=== PATIENT | female | born 1945 | race Two or more races ===

== ENCOUNTER → 2017-08-30 | Emergency (ER) | payer OTHER ==
[~2017-08-30] VITALS: Ht 149.9 cm; Wt 59.0 kg
[~2017-08-30] MED LIST: ANTIVERT12.5 MG; CALCIUM1 TAB; DICLOFENAC SODI50 MG; GLIMEPIRIDE2 MG; LIPITOR20 MG; METFORMIN HCL500 M1; METOPROLOL SUC200 MG; MICARDIS80 MG; NORVASC2.5 MG; SYNTHROID150 MCG
== END | disposition home or self-care (01) ==
LOC: ER 18:12
DX: J11.1 Influenza due to unidentified influenza virus with other respiratory manifestations (principal)

== ENCOUNTER 2017-09-10 09:14 | Outpatient (CLI) | payer OTHER | END 2017-09-10 09:27 | disposition home or self-care (01) | LOC: LAB 09:14 | DX: D64.89 Other specified anemias (principal); N39.0 Urinary tract infection, site not specified; E11.9 Type 2 diabetes mellitus without complications; E78.2 Mixed hyperlipidemia; E03.0 Congenital hypothyroidism with diffuse goiter; E55.0 Rickets, active; N28.9 Disorder of kidney and ureter, unspecified; Z12.12 Encounter for screening for malignant neoplasm of rectum ==

== ENCOUNTER → 2017-11-01 | Outpatient (CLI) | payer OTHER | END | disposition home or self-care (01) | LOC: MAMO-SONO 07:45 | DX: Z12.31 Encounter for screening mammogram for malignant neoplasm of breast (principal); Z87.898 Personal history of other specified conditions; N60.11 Diffuse cystic mastopathy of right breast; N60.12 Diffuse cystic mastopathy of left breast ==

== ENCOUNTER 2017-11-07 10:55 | Outpatient (CLI) | payer OTHER | END 2017-11-07 14:53 | disposition home or self-care (01) | LOC: NUCLEAR 10:55 | DX: M81.0 Age-related osteoporosis without current pathological fracture (principal) ==

== ENCOUNTER 2018-01-23 08:09 | Outpatient (CLI) | payer OTHER | END 2018-01-23 08:17 | disposition home or self-care (01) | LOC: LAB 08:09 | DX: E78.2 Mixed hyperlipidemia (principal); I11.9 Hypertensive heart disease without heart failure; E11.9 Type 2 diabetes mellitus without complications; E03.4 Atrophy of thyroid (acquired) ==

== ENCOUNTER 2018-06-13 17:15 | Emergency (ER) | payer OTHER ==
[~2018-06-13] VITALS: Ht 149.9 cm; Wt 56.7 kg
[2018-06-13] MEDS ORDERED: NABUMETONE750 MG PO (18:13)
[2018-06-13] MEDS ORDERED: SYNTHROID112 MCG PO (18:13)
[2018-06-13] MEDS ORDERED: PROTONIX20 MG PO (18:13)
[2018-06-13] MEDS ORDERED: ATORVASTATIN CA10 MG PO (18:14)
[2018-06-13] MEDS ORDERED: METOPROLOL TART50 MG PO (18:14)
[2018-06-13] MEDS ORDERED: GLIMEPIRIDE2 MG PO (18:14)
[2018-06-13] MEDS ORDERED: AMLODIPINE BESYL5 MG PO (18:15)
[2018-06-13] MEDS ORDERED: METFORMIN HCL500 M2 PO (18:15)
== END 2018-06-13 21:04 | disposition home or self-care (01) ==
LOC: ER 17:15
DX: R42 Dizziness and giddiness (principal)

== ENCOUNTER → 2018-09-01 | Emergency (ER) | payer OTHER ==
[~2018-09-01] VITALS: Ht 177.8 cm; Wt 70.3 kg
[~2018-09-01] MED LIST changes: +AMLODIPINE BESYL5 MG PO; +ATORVASTATIN CA10 MG PO; +GLIMEPIRIDE2 MG PO; +METFORMIN HCL500 M2 PO; +METOPROLOL TART50 MG PO; +NABUMETONE750 MG PO; +PROTONIX20 MG PO; +SYNTHROID112 MCG PO
== END | disposition designated cancer center or children's hospital (05) ==
LOC: ER 16:41
DX: S43.014A Anterior dislocation of right humerus, initial encounter (principal); S42.291A Other displaced fracture of upper end of right humerus, initial encounter for closed fracture; W01.198A Fall on same level from slipping, tripping and stumbling with subsequent striking against other object, initial encounter; Y93.89 Activity, other specified; Y92.018 Other place in single-family (private) house as the place of occurrence of the external cause; Y99.8 Other external cause status

== ENCOUNTER 2018-11-01 11:09 | Outpatient (CLI) | payer OTHER | END 2018-11-01 16:20 | disposition home or self-care (01) | LOC: RAD 11:09 | DX: S42.001A Fracture of unspecified part of right clavicle, initial encounter for closed fracture (principal) ==

== ENCOUNTER 2018-11-14 10:19 | Outpatient (CLI) | payer OTHER | END 2018-11-14 10:22 | disposition home or self-care (01) | LOC: MRI 10:19 | DX: M75.121 Complete rotator cuff tear or rupture of right shoulder, not specified as traumatic (principal) | CPT/HCPCS: 73221 ==

== ENCOUNTER 2019-01-12 11:13 | Outpatient (CLI) | payer OTHER | END 2019-01-12 11:17 | disposition home or self-care (01) | LOC: RAD 11:13 | DX: S92.001A Unspecified fracture of right calcaneus, initial encounter for closed fracture (principal) ==

== ENCOUNTER 2019-03-06 07:09 | Outpatient (CLI) | payer OTHER | END 2019-03-06 07:13 | disposition home or self-care (01) | LOC: LAB 07:09 | DX: D64.89 Other specified anemias (principal); N39.0 Urinary tract infection, site not specified; E11.9 Type 2 diabetes mellitus without complications; E78.00 Pure hypercholesterolemia, unspecified; E03.0 Congenital hypothyroidism with diffuse goiter; E55.0 Rickets, active; N28.89 Other specified disorders of kidney and ureter ==